=== PATIENT | female | born 1965 | race Caucasian/White ===

== ENCOUNTER 2022-02-27 09:04 | Day surgery (SDC) | payer MEDICAID ==
[2022-02-26 14:22] LABS: HCG,QUAL RESULT NEGATIVE (NEGATIVE)
[~2022-02-27] VITALS: Ht 157.5 cm; Wt 58.5 kg
[2022-02-27] MEDS ORDERED: NS 1000 ML IV.SOLN IV ONE (12:15)
[2022-02-27] MEDS ORDERED: DEXAMETHASONE SOD PHOSPHATE 4 MG/ML VIAL IVP ONE (12:15)
[2022-02-27] MEDS ORDERED: SEVOFLURANE 15 MIN GAS INH ONE (12:15)
[2022-02-27] MEDS ORDERED: PROPOFOL 200MG/ 20ML VIAL (DIPRIVAN) IV ONE (12:15)
[2022-02-27] MEDS ORDERED: LR 1,000 ML IV.SOLN IV ONE (12:15)
[2022-02-27] MEDS ORDERED: ONDANSETRON HCL 4 MG/2 ML VIAL IVP ONE (12:15)
[2022-02-27] MEDS ORDERED: fentaNYL CITRATE/PF 100 MCG/2 ML AMP IVP ONE (12:15)
[2022-02-27] MEDS ORDERED: METOCLOPRAMIDE HCL 10 MG/2 ML VIAL IVP PRN (13:00)
[2022-02-27] MEDS ORDERED: ONDANSETRON HCL 4 MG/2 ML VIAL IVP PRN (13:00)
[2022-02-27] MEDS ORDERED: HYDROmorphone 1 MG/ML INJ. CARTRIDGE IVP PRN (13:00)
[2022-02-27] MEDS ORDERED: LR 1,000 ML IV SCH (13:00)
[2022-02-27] MEDS ORDERED: KETOROLAC TROMETHAMINE 30 MG VIAL IVP PRN (13:00)
[2022-02-27] MEDS ORDERED: MEPERIDINE HCL/PF 25 MG/ML DISP.SYRIN IVP PRN (13:00)
[2022-02-27 14:57] VITALS: BP_SYST 145
== END 2022-02-27 14:50 | disposition home or self-care (01) ==
LOC: SDS 09:04 → SMU 09:05 → SDS 14:50
PROVIDERS: ATTEND Obstetrics & Gynecology
DX: N92.1 Excessive and frequent menstruation with irregular cycle (principal); N84.0 Polyp of corpus uteri; Z20.822 Contact with and (suspected) exposure to COVID-19
CPT/HCPCS: 84703; 36415; 87426; 58558; 88305; J1100; J2405; J2704; J3010; J7120; J7030; C1819

== ENCOUNTER 2022-05-10 08:00 | Outpatient (CLI) | payer MEDICAID ==
[~2022-05-10] VITALS: Ht 157.5 cm; Wt 61.7 kg
== END 2022-05-10 18:00 | disposition home or self-care (01) ==
LOC: SLB 08:00 → EDSTATUS 05-14 07:30
PROVIDERS: ATTEND Obstetrics & Gynecology
DX: Z01.812 Encounter for preprocedural laboratory examination (principal); N92.1 Excessive and frequent menstruation with irregular cycle
CPT/HCPCS: 87081

== ENCOUNTER 2022-07-09 06:00 | Inpatient (IN) | payer MEDICAID ==
[~2022-07-09] VITALS: Ht 157.5 cm; Wt 62.1 kg
[2022-07-09 06:38] LABS: HCG,QUAL RESULT NEGATIVE (NEGATIVE)
[2022-07-09] MEDS ORDERED: LIDOCAINE 2%, 20 ML MDV ONE (07:28)
[2022-07-09] MEDS ORDERED: SEVOFLURANE 15 MIN GAS INH ONE (07:28)
[2022-07-09] MEDS ORDERED: ROCURONIUM BROMIDE 10 MG/ML (ZEMURON) ONE (07:28)
[2022-07-09] MEDS ORDERED: PHENYLEPHRINE HCL 10 MG/ML VIAL (NEOSYNEPHRINE) ONE (07:28)
[2022-07-09] MEDS ORDERED: PROPOFOL 200MG/ 20ML VIAL (DIPRIVAN) IV ONE (07:28)
[2022-07-09] MEDS ORDERED: WATER FOR IRRIGATION,STERILE 1,000 ML IRRIG.SOLN IR ONE (07:28)
[2022-07-09] MEDS ORDERED: ONDANSETRON HCL 4 MG/2 ML VIAL ONE (07:28)
[2022-07-09] MEDS ORDERED: BUPIVACAINE /PF 0.25% 30 ML VIAL INJ ONE (07:28)
[2022-07-09] MEDS ORDERED: GLYCOPYRROLATE 0.2 MG/ML VIAL ONE (07:28)
[2022-07-09] MEDS ORDERED: NS IRRIG SOLN 1000 ML IR ONE (07:28)
[2022-07-09] MEDS ORDERED: NS 1000 ML IV.SOLN IV ONE (07:28)
[2022-07-09] MEDS ORDERED: KETOROLAC TROMETHAMINE 30 MG VIAL ONE (07:28)
[2022-07-09] MEDS ORDERED: SIMETHICONE 80 MG TAB.CHEW PO PRN (07:45)
[2022-07-09] MEDS ORDERED: ONDANSETRON HCL 4 MG/2 ML VIAL IVP PRN ×2 (07:45→09:15)
[2022-07-09] MEDS ORDERED: OXYCODONE/ACETAMINOPHEN 5-325 TABLET PO PRN (07:45)
[2022-07-09] MEDS: LR 1,000 ML IV SCH ×3 (07:45→23:45)
[2022-07-09] MEDS ORDERED: KETOROLAC TROMETHAMINE 30 MG VIAL IVP PRN ×2 (07:45→09:15)
[2022-07-09] MEDS ORDERED: IBUPROFEN 800 MG TABLET PO PRN (07:45)
[2022-07-09] MEDS ORDERED: BISACODYL 10 MG/SUPPOSITORY RC PRN (07:45)
[2022-07-09] MEDS ORDERED: ACETAMINOPHEN 500 MG TABLET PO ONE (09:15)
[2022-07-09] MEDS ORDERED: HYDROmorphone 1 MG/ML INJ. CARTRIDGE IVP PRN (09:15)
[2022-07-09] MEDS ORDERED: METOCLOPRAMIDE HCL 10 MG/2 ML VIAL IVP PRN (09:15)
[2022-07-09] MEDS: DOCUSATE SODIUM 100 MG CAPSULE PO SCH ×2 (11:26→20:49)
[2022-07-09 13:51] VITALS: BP_SYST 152
[2022-07-09] MEDS: HYDROmorphone 1 MG/ML INJ. CARTRIDGE IVP PRN ×2 (14:56→23:40)
[2022-07-09 16:00] VITALS: BP_SYST 144
[2022-07-09 19:55] VITALS: BP_SYST 132
[2022-07-09] MEDS ORDERED: TEMAZEPAM 15 MG CAPSULE PO PRN (21:00)
[2022-07-09] MEDS ORDERED: SENNOSIDES/DOCUSATE SODIUM 1 TAB TABLET(SENOKOT-S) PO SCH (21:00)
[2022-07-09 23:30] VITALS: BP_SYST 139
[2022-07-10 06:14] LABS: BASOPHILS % (AUTO) 0.5 % (0.0-2.0); EOSINOPHILS # (AUTO) 0.1 K/uL (0.0-0.4); EOSINOPHILS % (AUTO) 0.6 % (0.0-4.0); HEMATOCRIT 30.7 % (36-48); HEMOGLOBIN 9.7 g/dL (12.0-16.0); LYMPHOCYTES # (AUTO) 1.1 K/uL (1.0-5.5); LYMPHOCYTES % (AUTO) 12.6 % (20.5-51.5); MEAN CORPUSCULAR HEMOGLOBIN 25 pg (27-31); MEAN CORPUSCULAR HGB CONC 32 % (32-36); MEAN CORPUSCULAR VOLUME 79 fL (79.0-98.0); MONOCYTES # (AUTO) 0.7 K/uL (0.0-1.0); MONOCYTES % (AUTO) 8.6 % (1.7-9.3); NEUTROPHILS # (AUTO) 6.7 K/uL (1.8-7.7); NEUTROPHILS % (AUTO) 77.7 % (40.0-70.0); PLATELET COUNT (AUTO) 335 K/uL (130-430); RED BLOOD CELL COUNT(AUTO) 3.89 MIL/uL (4.2-6.2); RED CELL DISTRIBUTION WIDTH 21.2 % (9.0-15.0); WHITE BLOOD COUNT (AUTO) 8.6 K/uL (4.8-10.8)
[2022-07-10 08:00] VITALS: BP_SYST 150
[2022-07-10] MEDS: DOCUSATE SODIUM 100 MG CAPSULE PO SCH (08:53)
[2022-07-10] MEDS: OXYCODONE/ACETAMINOPHEN 5-325 TABLET PO PRN ×2 (08:53→12:43)
[2022-07-10 13:01] VITALS: BP_SYST 146
== END 2022-07-10 15:51 | disposition home or self-care (01) | DRG 513 ==
LOC: SMU 06:00 → SDS 06:00 → SMU 10:11
PROVIDERS: ADMIT Obstetrics & Gynecology; ATTEND Obstetrics & Gynecology
PROC: 0UT24ZZ Resection of Bilateral Ovaries, Percutaneous Endoscopic Approach (ICD-10-PCS; 2022-07-09)
PROC: 0UT74ZZ Resection of Bilateral Fallopian Tubes, Percutaneous Endoscopic Approach (ICD-10-PCS; 2022-07-09)
PROC: 8E0W4CZ Robotic Assisted Procedure of Trunk Region, Percutaneous Endoscopic Approach (ICD-10-PCS; 2022-07-09)
PROC: 0UT94ZZ Resection of Uterus, Percutaneous Endoscopic Approach (ICD-10-PCS; principal; 2022-07-09 07:28)
DX: N92.1 Excessive and frequent menstruation with irregular cycle (principal)
CPT/HCPCS: 36415; 84703; 85025; 86870; 86886; 86900; 86901; 87081; 88307; C1727; E0190; J1170; J1885; J2001; J2370; J2405; J2704; J3490; J7030